=== PATIENT | female | born 1955 | race Caucasian/White ===

== ENCOUNTER 2017-01-11 06:35 | Day surgery (SDC) | payer OTHER ==
[2017-01-11] MEDS ORDERED: ceFAZolin 1 GM in NORMAL SALINE MINI-BAG+ 100 ML IV ONE ×3 (06:39→10:28)
[2017-01-11] MEDS ORDERED: FAMOTIDINE IN SALINE, ISO-OSM 20 MG/50 ML PIGGYBACK IV SCH (07:00)
[2017-01-11] MEDS ORDERED: LACTATED RINGERS 1,000 ML IV SCH ×3 (07:00→11:00)
[2017-01-11] MEDS ORDERED: LIDOCAINE HCL 1% 20 ML VIAL SUBCUT ONE ×2 (07:00→10:28)
[2017-01-11] MEDS ORDERED: MIDAZOLAM HCL 2 MG/2 ML SYR IV ONE (07:00)
[2017-01-11] MEDS ORDERED: SCOPOLAMINE 1.5 MG PATCH TD ONE (07:00)
[2017-01-11] MEDS ORDERED: MIDAZOLAM HCL 2 MG/2 ML VIAL ONE (07:15)
[2017-01-11] MEDS ORDERED: ROPIVACAINE HCL 0.5% 30 ML ONE ×2 (07:16→07:35)
[2017-01-11] MEDS ORDERED: LIDOCAINE HCL/PF 1% 30 ML VIAL ONE (07:27)
[2017-01-11] MEDS ORDERED: FENTANYL 100 MCG/2 ML VIAL ONE ×2 (07:42→09:25)
[2017-01-11] MEDS ORDERED: ONDANSETRON HCL 4 MG/2 ML VIAL ONE ×2 (07:43→12:20)
[2017-01-11] MEDS ORDERED: DEXAMETHASONE 4 MG/ML VIAL ONE (07:43)
[2017-01-11] MEDS ORDERED: ROCURONIUM BROMIDE 50 MG/5 ML VIAL IV ONE (07:43)
[2017-01-11] MEDS ORDERED: SUGAMMADEX SODIUM 200 MG/2 ML VIAL IV ONE (07:43)
[2017-01-11] MEDS ORDERED: BUPIVACAINE/EPI 0.25% 1 VIAL VIAL ONE (07:55)
[2017-01-11] MEDS ORDERED: KETOROLAC TROMETHAMINE 30 MG/ML VIAL IV ONE (10:28)
[2017-01-11] MEDS ORDERED: FENTANYL 100 MCG/2 ML VIAL IV PRN (10:28)
[2017-01-11 11:12] VITALS: TEMP 97.2
[2017-01-11 11:38] VITALS: RESP 12; O2SAT 91
[2017-01-11 11:46] VITALS: PULSE 58
[2017-01-11 11:52] VITALS: BP 155/85
[2017-01-11] MEDS ORDERED: ONDANSETRON HCL 4 MG/2 ML VIAL IV ONE (12:10)
--- NOTE | 2017-01-11 16:43 | OPERATIVE REPORT ---
DATE OF SURGERY: 01/11/17 SURGEON: Adalberto Mcgowan DO ANESTHESIA: General. PREOPERATIVE DIAGNOSIS: Right shoulder rotator cuff tear. POSTOPERATIVE DIAGNOSIS: Right shoulder massive rotator cuff tear. OPERATION PERFORMED: Right arthroscopic massive rotator cuff repair. ESTIMATED BLOOD LOSS: Minimal. COMPLICATIONS: None. ORTHOPEDIC IMPLANTS: Arthrex suture anchor, biocomposite swivel lock C, closed eyelet 5.5 x 19.1 mm and Arthrex speed bridge implant system with biocomposite swivel lock 4.75 x 19.1 x 3 of those anchors. PROCEDURE NOTE: The patient was brought to the operating room suite and after administration of general anesthesia the right upper extremity was prepped and draped in a sterile fashion after positioning the patient in the lateral decubitus position with all bony prominences well padded on a well padded beanbag with pillows between and around the knees. The arthroscopic portal sites were injected with 0.25% bupivacaine with epinephrine prior to incision. The posterior portal was created first. The anterior portal was created under direct visualization with a spinal needle. Diagnostic arthroscopy revealed mild fraying of the labrum. 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 The massive rotator cuff tear was noted. The margin of the frayed labrum was debrided. The biceps also had some superficial fraying which was also debrided. The instrumentation was then switched to the subacromial space and a soft tissue subacromial decompression was performed. The massive rotator cuff tear did have a laminated component and was at the level of the glenoid. A series of soft tissue releases was performed to allow for optimal excursion of the rotator cuff for later repair. The subdeltoid bursa was also debrided which was hypertrophied. A bur was utilized to prepare the footprint for the rotator cuff repair down to bleeding bone creating a crimson duvet. A double row repair was performed with crisscrossing sutures with 4 passes made through the rotator cuff for optimal security and sealing of the repair from the joint. The shoulder was then drained of all arthroscopic fluid and the portals were closed utilizing 3-0 nylon in simple interrupted sutures followed by dressing with bacitracin ointment, Xeroform, 4x4s, ABDs, Metapore tape. The shoulder was fitted with a Cryo/Cuff and an abducted shoulder immobilizer, and the patient was transferred from the operating room suite to the recovery room in stable condition. ARIES
--- NOTE | 2017-01-15 13:23 | PREOPERATIVE H&P ---
History of Present Illness (Adalberto Mcgowan DO; 12/15/2016 2:41 PM) The patient is a 61 year old female. Patient presents complaining of right shoulder pain after falling about a month ago. She was seen by her primary care physician at the [facility]. She has been taking pain medicine for her back and her shoulder. She has gone thru 3 weeks of physical therapy but does not feel like she is made any improvements at all and she still has constant pain. She has an MRI which was done a few days ago. Allergies (Leah Garcia RN; 12/15/2016 1:47 PM) Codeine Phosphate *ANALGESICS - OPIOID* Nausea. Demerol *ANALGESICS - OPIOID* Vomiting. Morphine Sulfate (Concentrate) *ANALGESICS - OPIOID* Vomiting. Family History (Leah Garcia RN; 12/15/2016 1:46 PM) Ovarian Cancer Mother. Social History (Leah Garcia RN; 12/15/2016 1:46 PM) Tobacco Use Never smoker. Alcohol Use Drinks Rarely. Medication History (Leah Garcia RN; 12/15/2016 1:53 PM) CeleBREX (200MG Capsule, 1 cap Oral daily) Active. Flonase (50MCG/ACT Suspension, Nasal) Active. [place] (10-325MG Tablet, 1/2 tab Oral two times daily, as needed) Active. Omeprazole (40MG Capsule ER, 1 tab Oral daily) Active. Simvastatin (20MG Tablet, 1 tab Oral daily) Active. Medications Reconciled Review of Systems (Adalberto Mcgowan DO; 12/15/2016 2:41 PM) General Not Present- Chills and Fever. Skin Not Present- Erythema, Skin Color Changes and Skin Problems. HEENT Not Present- Sleep Apnea. Neck Not Present- Neck Pain. Respiratory Not Present- Cough and Shortness of Breath. Cardiovascular Not Present- Chest Pain, Difficulty Breathing On Exertion, Fainting and Leg Pain and/or Swelling. Gastrointestinal Not Present- Abdominal Pain, Nausea and Vomiting. Female Genitourinary Not Present- Painful Urination. Musculoskeletal Not Present- Decreased Range of Motion, Joint Pain, Joint Stiffness, Joint Swelling, Muscle Pain and Muscle Weakness. Neurological Not Present- Dizziness, Focal Neurological Symptoms, Numbness in extremities, Trouble walking and Weakness. Psychiatric Not Present- Anorexia, Anxiety and Depression. Endocrine Not Present- Weight Loss. Hematology Not Present- Bleeding Problems, DVT and Easy Bruising. Vitals (Leah Garcia RN; 12/15/2016 1:43 PM) 12/15/2016 1:42 PM Weight: 176.2 lb Height: 59in Body Surface Area: 1.75 m Body Mass Index: 35.59 kg/m Temp.: 98.2F Pulse: 88 (Regular) Resp.: 16 (Unlabored) BP: 130/76 (Sitting, Left Arm, Standard) Physical Exam (Adalberto Mcgowan DO; 12/15/2016 2:43 PM) Physical examination of the RIGHT shoulder demonstrates normal appearing muscle tone. No skin changes and no erythema. There is no tenderness to palpation over the acromioclavicular joint. There is no tenderness to palpation over the bicipital groove. Forward flexion is to 90 active. Abduction is to 80 active. There is no palpable swelling or effusion. The peripheral neurovascular status is intact with normal and adequate perfusion. Normal sensation over the axillary nerve distribution. Herndon sign is POSITIVE (shoulder abducted to 90 with the elbow also at 90 with an internal rotation moment) for possible acromioclavicular joint involvement and rotator cuff impingement. Neer sign is POSITIVE (passive forward flexion with slight abduction) for possible supraspinatus involvement. [place]'s sign is negative (resisted forward flexion with the arm across the body the thumb pointing downward) for possible labrum and/or acromioclavicular joint involvement. Speeds test is negative(resisted forward flexion and supination) for possible biceps tendon involvement. There is no instability or laxity noted with a normal load shift. Plain film x-rays demonstrate no fracture dislocation and no arthritic processes. MRI demonstrates complete tear of the infraspinatus and near complete tearing of the supraspinatus. There is muscle atrophy of the infraspinatus. The supraspinatus has no atrophy. Assessment & Plan (Adalberto Mcgowan DO; 12/15/2016 2:44 PM) Complete tear of right rotator cuff (M75.121) Impression: Patient has undergone physical therapy, activity modifications and has been taking pain medicine without any permanent in her shoulder. She has a large tear of her infraspinatus and of her supraspinatus tendons. An intra- articular steroid injection is not indicated with this severe presentation. After educating the patient regarding treatment options with their associated risks and benefits, the patient elected to proceed with surgical treatment of the injury/pathology with RIGHT ARTHROSCOPIC ROTATOR CUFF REPAIR. The risks and benefits of the specific procedure were explained and all questions and concerns were addressed and answered. Post operative rehabilitation requirements and expectations for optimal outcome were reviewed and the patient confirmed understanding these and committed to compliance. All questions answered. The patient will be optimized medically by consultation with their primary care physician prior to their procedure. Signed by Adalberto Mcgowan DO (12/15/2016 2:45 PM) Patient was examined at bedside and there are no changes. Signed Adalberto Mcgowan DO 01/11/17 [facility]
== END 2017-01-11 12:26 | disposition home or self-care (01) ==
LOC: SDS 06:35
PROVIDERS: ATTEND Orthopaedic Surgery
DX: M75.121 Complete rotator cuff tear or rupture of right shoulder, not specified as traumatic (principal)
CPT/HCPCS: C1713; J0690; J2250; J2405; J2795; J3010